=== PATIENT | male | born 1970 | race Caucasian/White ===

== ENCOUNTER 2017-01-13 19:24 | Inpatient (IN) | payer MEDICARE, OTHER ==
[~2017-01-13] VITALS: Ht 167.6 cm; Wt 94.3 kg
[~2017-01-13 19:24] MED LIST: LORAZEPAM2 MG ORAL; PRAZOSIN HCL2 MG PO
[2017-01-13] MEDS ORDERED: LORazepam Inj 2mg/ml 1ml IV PRN (22:00)
[2017-01-13] MEDS: Heparin 5000 units/ml inj SUBQ SCH (23:03)
[2017-01-13] MEDS: D5 1/2NS 1,000 ML IV SCH (23:04)
[2017-01-13] MEDS ORDERED: GABAPENTIN300 MG ORAL (23:59)
[2017-01-13] MEDS ORDERED: SIMVASTATIN20 MG ORAL (23:59)
[2017-01-13] MEDS ORDERED: TRAZODONE HCL100 MG ORAL (23:59)
[2017-01-13] MEDS ORDERED: LAMICTAL150 MG ORAL (23:59)
[2017-01-13] MEDS ORDERED: OLANZAPINE5 MG ORAL (23:59)
[2017-01-13] MEDS ORDERED: QUETIAPINE FUM400 MG ORAL (23:59)
[2017-01-14] VITALS: BP 123/107
[2017-01-14 04:34] VITALS: BP 130/98
[2017-01-14] MEDS: Heparin 5000 units/ml inj SUBQ SCH (05:45)
[2017-01-14 07:12] LABS: BASOPHILS % (AUTO) 0.5 % (0.0-2.0); EOSINOPHILS % (AUTO) 0.1 % (0.0-3.0); LYMPHOCYTES % (AUTO) 19.8 % (20.0-45.0); MEAN CORPUSCULAR HEMOGLOBIN 31.4 PG (27.0-31.0); MEAN CORPUSCULAR HGB CONC 34.4 G/DL (32.0-36.0); MEAN CORPUSCULAR VOLUME 91 FL (80-99); MEAN PLATELET VOLUME 6.6 FL (6.5-10.1); MONOCYTES % (AUTO) 9.9 % (1.0-10.0); NEUTROPHILS % (AUTO) 69.7 % (45.0-75.0); PLATELET COUNT 272 K/UL (150-450); RED BLOOD COUNT 4.34 M/UL (4.70-6.10); RED CELL DISTRIBUTION WIDTH 12.3 % (11.6-14.8); WHITE BLOOD COUNT 11.5 K/UL (4.8-10.8)
[2017-01-14 07:38] LABS: ALANINE AMINOTRANSFERASE 18 U/L (3-41); ALBUMIN/GLOBULIN RATIO 1.7 (1.0-2.7); AMYLASE 43 U/L (10-110); ANION GAP 16 (5-15); ASPARTATE AMINO TRANSFERASE 18 U/L (5-40); CALCIUM 8.6 mg/dL (8.6-10.2); CARBON DIOXIDE 26 mEQ/L (20-30); CHLORIDE 98 mEQ/L (98-107); GLOMERULAR FILTRATION RATE > 60 mL/min (>60); HEMOLYSIS 8; LIPASE 68 U/L (< 60); PHOSPHORUS 2.3 mg/dL (2.5-4.8); POTASSIUM 3.2 mEQ/L (3.4-4.9); SODIUM 140 mEQ/L (135-145); TOTAL PROTEIN 6.7 g/dL (6.6-8.7)
[2017-01-14 08:24] VITALS: BP 138/87
[2017-01-14] MEDS: D5 1/2NS 1,000 ML IV SCH (08:48)
[2017-01-14 11:58] VITALS: BP 141/89
--- NOTE | 2017-01-14 12:17 | Consultation ---
History of Present Illness Present Illness Allergies: Coded Allergies: OMEPRAZOLE (Verified Allergy, Unknown, 01/13/17) ROSUVASTATIN (Verified Allergy, Unknown, 01/13/17) Medication History Scheduled Gabapentin* (Gabapentin*), 300 MG ORAL THREE TIMES A DAY, (Reported) Lamotrigine* (Lamictal*), 150 MG ORAL DAILY, (Reported) Lorazepam* (Lorazepam*), 2 MG ORAL DAILY, (Reported) Olanzapine (Olanzapine), 5 MG ORAL DAILY, (Reported) Prazosin Hcl (Prazosin Hcl), 2 MG PO HS, (Reported) Quetiapine Fumarate* (Quetiapine Fumarate*), 800 MG ORAL DAILY, (Reported) Simvastatin (Zocor), 20 MG ORAL BEDTIME, (Reported) Trazodone Hcl* (Desyrel*), 100 MG ORAL BEDTIME, (Reported) Patient History Healthcare decision maker N Resuscitation status Full Code Advanced Directive on File Physical Exam Last 24 Hour Vital Signs Date Time Temp Pulse Resp B/P Pulse Ox O2 Delivery O2 Flow Rate FiO2 01/14/17 11:58 97.9 73 18 141/89 97 Room Air 01/14/17 08:24 97.7 70 19 138/87 95 Room Air 01/14/17 04:34 97.9 69 20 130/98 93 Room Air 01/14/17 00:00 98.2 66 20 123/107 95 Room Air Intake and Output 01/13/17 01/14/17 19:00 07:00 Intake Total 600 ml Balance 600 ml Intake IV Total 600 ml # Voids 2 Laboratory Tests Test 01/14/17 06:30 White Blood Count 11.5 K/UL (4.8-10.8) H Red Blood Count 4.34 M/UL (4.70-6.10) L Hemoglobin 13.6 G/DL (14.2-18.0) L Hematocrit 39.6 % (42.0-52.0) L Mean Corpuscular Volume 91 FL (80-99) Mean Corpuscular Hemoglobin 31.4 PG (27.0-31.0) H Mean Corpuscular Hemoglobin Concent 34.4 G/DL (32.0-36.0) Red Cell Distribution Width 12.3 % (11.6-14.8) Platelet Count 272 K/UL (150-450) Mean Platelet Volume 6.6 FL (6.5-10.1) Neutrophils (%) (Auto) 69.7 % (45.0-75.0) Lymphocytes (%) (Auto) 19.8 % (20.0-45.0) L Monocytes (%) (Auto) 9.9 % (1.0-10.0) Eosinophils (%) (Auto) 0.1 % (0.0-3.0) Basophils (%) (Auto) 0.5 % (0.0-2.0) Sodium Level 140 mEQ/L (135-145) Potassium Level 3.2 mEQ/L (3.4-4.9) L Chloride Level 98 mEQ/L (98-107) Carbon Dioxide Level 26 mEQ/L (20-30) Anion Gap 16 (5-15) H Blood Urea Nitrogen 16 mg/dL (7-23) Creatinine 1.0 mg/dL (0.7-1.2) Estimat Glomerular Filtration Rate > 60 mL/min (>60) Glucose Level 129 mg/dL (74-106) H Calcium Level 8.6 mg/dL (8.6-10.2) Phosphorus Level 2.3 mg/dL (2.5-4.8) L Magnesium Level 2.0 mg/dL (1.7-2.5) Total Bilirubin 0.4 mg/dL (0.0-1.2) Aspartate Amino Transf (AST/SGOT) 18 U/L (5-40) Alanine Aminotransferase (ALT/SGPT) 18 U/L (3-41) Alkaline Phosphatase 61 U/L (40-129) Total Protein 6.7 g/dL (6.6-8.7) Albumin 4.3 g/dL (3.5-5.2) Globulin 2.4 g/dL Albumin/Globulin Ratio 1.7 (1.0-2.7) Amylase Level 43 U/L (10-110) Lipase 68 U/L (< 60) H Height (Feet): 5 Height (Inches): 6.00 Weight (Pounds): 208 Medications Current Medications Medications (Trade) Dose Ordered Sig/Bert Route PRN Reason Start Time Stop Time Status Last Admin Dose Admin Clonidine HCl (Catapres) 0.1 mg Q4H PRN ORAL For High Blood Pressure 01/13/17 22:00 02/12/17 21:59 Dextrose/Sodium Chloride (D5 0.45% NS) 1,000 ml @ 75 mls/hr [id number] IV 01/13/17 22:00 02/12/17 21:59 01/14/17 08:48 Gabapentin (Neurontin) 300 mg THREE TIMES A DAY ORAL 01/14/17 09:00 02/13/17 08:59 01/14/17 08:41 Heparin Sodium (Porcine) (Heparin 5000 units/ml) 5,000 units EVERY 8 HOURS SUBQ 01/13/17 22:00 02/12/17 21:59 01/14/17 05:45 Lorazepam 0.5 mg 0.5 mg Q4H PRN IV Nausea & Vomiting 01/13/17 22:00 01/20/17 21:59 01/13/17 23:03 Olanzapine (ZyPREXA) 5 mg BEDTIME ORAL 01/14/17 21:00 02/13/17 20:59 Ondansetron HCl (Zofran) 4 mg Q4HR PRN IVP Nausea & Vomiting 01/13/17 22:00 02/12/17 21:59 Quetiapine Fumarate (SEROquel) 300 mg DAILY ORAL 01/14/17 14:00 02/13/17 13:59 Trazodone HCl (Desyrel) 100 mg BEDTIME ORAL 01/14/17 21:00 02/13/17 20:59 NOMI [place] Jan 14, 2017 12:17
[2017-01-14] MEDS ORDERED: D5 1/2NS 1000ml IV ONE (12:59)
[2017-01-14] MEDS ORDERED: QUEtiapine 200mg tab ORAL SCH (14:00)
[2017-01-14] MEDS ORDERED: TraZODone 100mg tab ORAL SCH (21:00)
--- NOTE | 2017-01-16 09:11 | Diagnostic Imaging Report ---
Indication:Abdominal pain Technique: Grayscale and duplex Doppler imaging of the abdomen performed. Comparison: None Findings: The liver is about 18-19 cm and demonstrates increased echogenicity consistent with fatty infiltration. Portal vein is patent by Doppler. There is no biliary ductal dilatation identified. The CBD measures between 4 and 5 mm. There is no ascites. The gallbladder, demonstrated part of the pancreas, aorta, spleen, both kidneys appear normal. There is no hydronephrosis. Impression: Hepatomegaly with fatty infiltration.
--- NOTE | 2017-02-17 18:45 | Discharge Summary ---
Discharge Summary Hospital Course Date of Admission Jan 13, 2017 at 19:24 Date of Discharge Jan 14, 2017 at 13:00 Admitting Diagnosis HPI Mango Castaneda, LIA is a 46 year old male who was admitted on Jan 13, 2017 at 19: 24 for Nausea/Vomiting Hospital Course Patient was admitted to medical floor for abdominal pain, N/V was started on clear liquid diet and abdominal ultrasound was done. US negative. Patient was discharged home. Dx:1. Nausea and vomiting 2. Abdominal pain I have been assigned to complete a DC summary on this account I was not involved in the patient management--ASTRID Lazo Discharge Discharge Disposition Patient was discharged to Home (01) Discharge Diagnoses: Krista Monae NP Feb 17, 2017 18:45
== END 2017-01-14 13:00 | disposition home or self-care (01) | DRG 392 ==
LOC: 4E 19:24
DX: R11.2 Nausea with vomiting, unspecified (principal); R10.9 Unspecified abdominal pain; Z88.8 Allergy status to other drugs, medicaments and biological substances
CPT/HCPCS: 36415; 76700; 80053; 82150; 83690; 83735; 84100; 85025

== ENCOUNTER 2017-01-15 19:14 | Inpatient (IN) | payer MEDICARE, OTHER ==
[~2017-01-15] VITALS: Ht 167.6 cm; Wt 90.7 kg
[~2017-01-15 19:14] MED LIST changes: +GABAPENTIN300 MG ORAL; +LAMICTAL150 MG ORAL; +OLANZAPINE5 MG ORAL; +QUETIAPINE FUM400 MG ORAL; +SIMVASTATIN20 MG ORAL; +TRAZODONE HCL100 MG ORAL
[2017-01-15 19:25] VITALS: BP 164/92
[2017-01-15] MEDS ORDERED: DiphenhydrAMINE 50mg/ml Inj IVP ONE (20:00)
[2017-01-15] MEDS ORDERED: LORazepam Inj 2mg/ml 1ml IV ONE (20:00)
[2017-01-15] MEDS ORDERED: Famotidine 20 MG/ 2ML VIAL IVP ONE (20:00)
[2017-01-15] MEDS ORDERED: Metoclopramide 10mg/2ml Inj IVP ONE (20:00)
[2017-01-15 20:27] LABS: BASOPHILS % (AUTO) 0.6 % (0.0-2.0); EOSINOPHILS % (AUTO) 0.4 % (0.0-3.0); LYMPHOCYTES % (AUTO) 11.9 % (20.0-45.0); MEAN CORPUSCULAR HEMOGLOBIN 32.1 PG (27.0-31.0); MEAN CORPUSCULAR HGB CONC 35.1 G/DL (32.0-36.0); MEAN CORPUSCULAR VOLUME 92 FL (80-99); MEAN PLATELET VOLUME 6.1 FL (6.5-10.1); NEUTROPHILS % (AUTO) 82.1 % (45.0-75.0); PLATELET COUNT 237 K/UL (150-450); RED BLOOD COUNT 4.14 M/UL (4.70-6.10); RED CELL DISTRIBUTION WIDTH 11.8 % (11.6-14.8); WHITE BLOOD COUNT 15.5 K/UL (4.8-10.8)
--- NOTE | 2017-01-15 20:28 | Emergency Room Report ---
History of Present Illness General Chief Complaint: Vomiting Source: Patient Present Illness HPI Patient presents with complaints of increased nausea vomiting He reports that he was feeling better when he was in the hospital here and left prior to final discharge However soon after now has become more nauseated and vomiting since 4 PM Denies any chest pressures of breath Patient reports that he has had this problem since 2007 Has not had any official diagnoses Denies any dark or black stools Denies any chest pain or shortness of breath Allergies: Coded Allergies: OMEPRAZOLE (Verified Allergy, Unknown, 01/13/17) ROSUVASTATIN (Verified Allergy, Unknown, 01/13/17) Patient History Past Medical History: see triage record Pertinent Family History: none Reviewed Nursing Documentation: PMH: Agreed, PSxH: Agreed Nursing Documentation-PMH Hx Cardiac Problems: Yes - Hyperlipidemia Hx Hypertension: Yes Hx Cancer: No Hx Gastrointestinal Problems: Yes - Chronic vomiting Hx Syncope: Yes Review of Systems All Other Systems: negative except mentioned in HPI Physical Exam Vital Signs Date Time Temp Pulse Resp B/P Pulse Ox O2 Delivery O2 Flow Rate FiO2 01/15/17 19:25 98.8 68 22 164/92 97 Room Air Sp02 EP Interpretation: reviewed, normal General Appearance: no apparent distress Head: normocephalic, atraumatic Eyes: bilateral eye EOMI, bilateral eye PERRL ENT: hearing grossly normal, normal pharynx, TMs + canals normal, uvula midline Neck: full range of motion, supple, no meningismus, no bony tend Respiratory: lungs clear, normal breath sounds, no rhonchi, no respiratory distress, no retraction, no accessory muscle use Cardiovascular #1: normal peripheral pulses, regular rate, rhythm, no edema, no gallop, no JVD, no murmur Gastrointestinal: normal bowel sounds, non tender, soft, no mass, no organomegaly, non-distended, no guarding, no hernia, no pulsatile mass, no rebound Genitourinary: no CVA tenderness Musculoskeletal: normal inspection Neurologic: oriented x3, responsive, 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, motor strength/ tone normal, sensory intact Psychiatric: mood/affect normal Skin: normal color, no rash, warm/dry, palpation normal Lymphatic: normal inspection, no adenopathy Medical Decision Making Diagnostic Impression: Primary Impression: Nausea & vomiting ER Course With the history exam and presentation, multiple differentials considered, including but not limited to appendicitis, gastritis, cholecystitis, diverticulitis Patient remained fairly persistently nauseated even with multiple interventions Patient refusing Pepcid at this time I felt that there was a component of reflux reports that he gets significant headaches with that medicine Patient labs continued to remain stable from previous however given the clinical discomfort patient was admitted for further inpatient care Labs Test 01/15/17 19:53 01/15/17 21:40 White Blood Count 15.5 K/UL (4.8-10.8) Red Blood Count 4.14 M/UL (4.70-6.10) Hemoglobin 13.3 G/DL (14.2-18.0) Hematocrit 37.9 % (42.0-52.0) Mean Corpuscular Volume 92 FL (80-99) Mean Corpuscular Hemoglobin 32.1 PG (27.0-31.0) Mean Corpuscular Hemoglobin Concent 35.1 G/DL (32.0-36.0) Red Cell Distribution Width 11.8 % (11.6-14.8) Platelet Count 237 K/UL (150-450) Mean Platelet Volume 6.1 FL (6.5-10.1) Neutrophils (%) (Auto) 82.1 % (45.0-75.0) Lymphocytes (%) (Auto) 11.9 % (20.0-45.0) Monocytes (%) (Auto) 5.0 % (1.0-10.0) Eosinophils (%) (Auto) 0.4 % (0.0-3.0) Basophils (%) (Auto) 0.6 % (0.0-2.0) Sodium Level 138 mEQ/L (135-145) Potassium Level 3.4 mEQ/L (3.4-4.9) Chloride Level 95 mEQ/L (98-107) Carbon Dioxide Level 23 mEQ/L (20-30) Anion Gap 20 (5-15) Blood Urea Nitrogen 9 mg/dL (7-23) Creatinine 1.0 mg/dL (0.7-1.2) Estimat Glomerular Filtration Rate > 60 mL/min (>60) Glucose Level 122 mg/dL (74-106) Calcium Level 8.8 mg/dL (8.6-10.2) Total Bilirubin 0.4 mg/dL (0.0-1.2) Aspartate Amino Transf (AST/SGOT) 27 U/L (5-40) Alanine Aminotransferase (ALT/SGPT) 23 U/L (3-41) Alkaline Phosphatase 66 U/L (40-129) Total Protein 7.0 g/dL (6.6-8.7) Albumin 4.6 g/dL (3.5-5.2) Globulin 2.4 g/dL Albumin/Globulin Ratio 1.9 (1.0-2.7) Lipase 22 U/L (< 60) Serum Alcohol < 10 mg/dL Urine Opiates Screen Negative (NEGATIVE) Urine Barbiturates Screen Negative (NEGATIVE) Phencyclidine (PCP) Screen Negative (NEGATIVE) Urine Amphetamines Screen Negative (NEGATIVE) Urine Benzodiazepines Screen Negative (NEGATIVE) Urine Cocaine Screen Negative (NEGATIVE) Urine Marijuana (THC) Screen Negative (NEGATIVE) Chest X-Ray Diagnostic Results Chest X-Ray Ordered: No Last Vital Signs Date Time Temp Pulse Resp B/P Pulse Ox O2 Delivery O2 Flow Rate FiO2 01/15/17 19:26 98.8 73 14 164/92 96 Room Air Status: improved Disposition: ADMITTED INPATIENT Condition: Serious JOSEY AG D.O. Jan 15, 2017 20:27
[2017-01-15 20:30] VITALS: BP 164/103
[2017-01-15 20:46] LABS: ALANINE AMINOTRANSFERASE 23 U/L (3-41); ALBUMIN/GLOBULIN RATIO 1.9 (1.0-2.7); ALCOHOL < 10 mg/dL; ANION GAP 20 (5-15); ASPARTATE AMINO TRANSFERASE 27 U/L (5-40); CALCIUM 8.8 mg/dL (8.6-10.2); CARBON DIOXIDE 23 mEQ/L (20-30); CHLORIDE 95 mEQ/L (98-107); GLOMERULAR FILTRATION RATE > 60 mL/min (>60); HEMOLYSIS 9; LIPASE 22 U/L (< 60); POTASSIUM 3.4 mEQ/L (3.4-4.9); SODIUM 138 mEQ/L (135-145)
[2017-01-15 21:30] VITALS: BP 145/115
[2017-01-15] MEDS ORDERED: Mylanta II UD 30ml ORAL PRN (22:15)
[2017-01-15] MEDS ORDERED: Morphine Sulfate 2mg/ml Inj IVP PRN (22:15)
[2017-01-15] MEDS ORDERED: Miralax 17gm pkt ORAL PRN (22:15)
[2017-01-15] MEDS ORDERED: Nitroglycerin Subl 0.4mg tab (Bottle Of 25) SL PRN (22:15)
[2017-01-15] MEDS ORDERED: LORazepam Inj 2mg/ml 1ml IV PRN (22:15)
[2017-01-15 22:30] VITALS: BP 167/98
[2017-01-16] VITALS: BP 157/79
[2017-01-16] MEDS: D5 1/2NS 1,000 ML IV SCH ×3 (00:52→18:45)
[2017-01-16 07:18] LABS: BASOPHILS % (AUTO) 0.5 % (0.0-2.0); LYMPHOCYTES % (AUTO) 12.8 % (20.0-45.0); MEAN CORPUSCULAR HGB CONC 35.1 G/DL (32.0-36.0); MEAN CORPUSCULAR VOLUME 91 FL (80-99); MEAN PLATELET VOLUME 6.3 FL (6.5-10.1); NEUTROPHILS % (AUTO) 82.6 % (45.0-75.0); PLATELET COUNT 203 K/UL (150-450); RED BLOOD COUNT 3.64 M/UL (4.70-6.10); RED CELL DISTRIBUTION WIDTH 11.7 % (11.6-14.8); WHITE BLOOD COUNT 11.3 K/UL (4.8-10.8)
[2017-01-16 08:06] LABS: ALANINE AMINOTRANSFERASE 20 U/L (3-41); ALBUMIN/GLOBULIN RATIO 1.9 (1.0-2.7); AMYLASE 34 U/L (10-110); ANION GAP 16 (5-15); ASPARTATE AMINO TRANSFERASE 23 U/L (5-40); CALCIUM 8.3 mg/dL (8.6-10.2); CARBON DIOXIDE 23 mEQ/L (20-30); CHLORIDE 102 mEQ/L (98-107); CREATININE 0.9 mg/dL (0.7-1.2); GLOMERULAR FILTRATION RATE > 60 mL/min (>60); HEMOLYSIS 5; LIPASE 15 U/L (< 60); POTASSIUM 3.4 mEQ/L (3.4-4.9); SODIUM 141 mEQ/L (135-145); TOTAL PROTEIN 6.4 g/dL (6.6-8.7)
[2017-01-16 08:11] VITALS: BP 128/79
[2017-01-16] MEDS: Heparin 5000 units/ml inj SUBQ SCH ×2 (08:48→20:50)
[2017-01-16 11:56] VITALS: BP 135/94
--- NOTE | 2017-01-16 14:12 | GI Initial Consult Note ---
History of Present Illness General Date patient seen: Jan 16, 2017 Time patient seen: 11:00 Reason for Hospitalization: Vomiting Referring physician: KAROLINA DAWN Reason for Consultation: PERSISTANT NAUSEA Present Illness HPI Patient presents with complaints of increased nausea vomiting He reports that he was feeling better when he was in the hospital here and left prior to final discharge However soon after now has become more nauseated and vomiting since 4 PM Denies any chest pressures of breath Patient reports that he has had this problem since 2007 Has not had any official diagnoses Denies any dark or black stools Denies any chest pain or shortness of breath GI CONSULT. HPI as noted above. GI consulted for persistent vomiting. Pt seen on floor, awake A&Ox4 NAD with no active s/sx of N/V/D. Stated his last episode of emesis was at 4pm. 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 Denies any hematemesis or coffee grounds. He states his vomiting has unknown etiology and randomly occurs. Labs show mild leukocytosis and anemia. Lipase and utox both unremarkable. Pt has allergy to PPIs'. He states he has hx of colonic polyps since age 34 and receives colonoscopies every 3-5 years. He is due for his next routine colonoscopy next year. Home Meds Reported Medications Gabapentin* (GABAPENTIN*) 300 Mg Capsule, 300 MG ORAL THREE TIMES A DAY, CAP 0 Refills 01/13/17 Simvastatin (ZOCOR) 20 Mg Tablet, 20 MG ORAL BEDTIME, TAB 01/13/17 Lamotrigine* (LAMICTAL*) 150 Mg Tablet, 150 MG ORAL DAILY, #30 TAB 0 Refills 01/13/17 Quetiapine Fumarate* (QUETIAPINE FUMARATE*) 400 Mg Tablet, 800 MG ORAL DAILY, TAB 01/13/17 Olanzapine (OLANZAPINE) 5 Mg Tablet, 5 MG ORAL DAILY, TAB 01/13/17 Trazodone Hcl* (DESYREL*) 100 Mg Tablet, 100 MG ORAL BEDTIME, TAB 01/13/17 Prazosin Hcl (PRAZOSIN HCL) 2 Mg Capsule, 2 MG PO HS, CAP 09/20/14 Lorazepam* (LORAZEPAM*) 2 Mg Tablet, 2 MG ORAL DAILY, TAB 09/20/14 Med list reviewed/reconciled: Yes Allergies: Coded Allergies: OMEPRAZOLE (Verified Allergy, Unknown, 01/13/17) ROSUVASTATIN (Verified Allergy, Unknown, 01/13/17) Patient History History Provided By: Patient, Medical Record PMH Narrative Magoffin War Syndrome Hx Cardiac Problems: Yes - Hyperlipidemia Hx Hypertension: Yes Hx Cancer: No Hx Gastrointestinal Problems: Yes - Chronic vomiting Hx Syncope: Yes Social History Narrative Social ETOH 1 day pack smoker Review of Systems All Other Systems: negative except mentioned in HPI Physical Exam Vital Signs Date Time Temp Pulse Resp B/P Pulse Ox O2 Delivery O2 Flow Rate FiO2 01/15/17 19:25 98.8 68 22 164/92 97 Room Air Sp02 EP Interpretation: reviewed Labs Laboratory Tests Test 01/15/17 19:53 01/15/17 21:40 01/16/17 05:10 White Blood Count 15.5 K/UL (4.8-10.8) H 11.3 K/UL (4.8-10.8) H Red Blood Count 4.14 M/UL (4.70-6.10) L 3.64 M/UL (4.70-6.10) L Hemoglobin 13.3 G/DL (14.2-18.0) L 11.7 G/DL (14.2-18.0) L Hematocrit 37.9 % (42.0-52.0) L 33.2 % (42.0-52.0) L Mean Corpuscular Volume 92 FL (80-99) 91 FL (80-99) Mean Corpuscular Hemoglobin 32.1 PG (27.0-31.0) H 32.0 PG (27.0-31.0) H Mean Corpuscular Hemoglobin Concent 35.1 G/DL (32.0-36.0) 35.1 G/DL (32.0-36.0) Red Cell Distribution Width 11.8 % (11.6-14.8) 11.7 % (11.6-14.8) Platelet Count 237 K/UL (150-450) 203 K/UL (150-450) Mean Platelet Volume 6.1 FL (6.5-10.1) L 6.3 FL (6.5-10.1) L Neutrophils (%) (Auto) 82.1 % (45.0-75.0) H 82.6 % (45.0-75.0) H Lymphocytes (%) (Auto) 11.9 % (20.0-45.0) L 12.8 % (20.0-45.0) L Monocytes (%) (Auto) 5.0 % (1.0-10.0) 4.0 % (1.0-10.0) Eosinophils (%) (Auto) 0.4 % (0.0-3.0) 0.0 % (0.0-3.0) Basophils (%) (Auto) 0.6 % (0.0-2.0) 0.5 % (0.0-2.0) Sodium Level 138 mEQ/L (135-145) 141 mEQ/L (135-145) Potassium Level 3.4 mEQ/L (3.4-4.9) 3.4 mEQ/L (3.4-4.9) Chloride Level 95 mEQ/L (98-107) L 102 mEQ/L (98-107) Carbon Dioxide Level 23 mEQ/L (20-30) 23 mEQ/L (20-30) Anion Gap 20 (5-15) H 16 (5-15) H Blood Urea Nitrogen 9 mg/dL (7-23) 9 mg/dL (7-23) Creatinine 1.0 mg/dL (0.7-1.2) 0.9 mg/dL (0.7-1.2) Estimat Glomerular Filtration Rate > 60 mL/min (>60) > 60 mL/min (>60) Glucose Level 122 mg/dL (74-106) H 132 mg/dL (74-106) H Calcium Level 8.8 mg/dL (8.6-10.2) 8.3 mg/dL (8.6-10.2) L Total Bilirubin 0.4 mg/dL (0.0-1.2) 0.4 mg/dL (0.0-1.2) Aspartate Amino Transf (AST/SGOT) 27 U/L (5-40) 23 U/L (5-40) Alanine Aminotransferase (ALT/SGPT) 23 U/L (3-41) 20 U/L (3-41) Alkaline Phosphatase 66 U/L (40-129) 59 U/L (40-129) Total Protein 7.0 g/dL (6.6-8.7) 6.4 g/dL (6.6-8.7) L Albumin 4.6 g/dL (3.5-5.2) 4.2 g/dL (3.5-5.2) Globulin 2.4 g/dL 2.2 g/dL Albumin/Globulin Ratio 1.9 (1.0-2.7) 1.9 (1.0-2.7) Lipase 22 U/L (< 60) 15 U/L (< 60) Serum Alcohol < 10 mg/dL Urine Opiates Screen Negative (NEGATIVE) Urine Barbiturates Screen Negative (NEGATIVE) Phencyclidine (PCP) Screen Negative (NEGATIVE) Urine Amphetamines Screen Negative (NEGATIVE) Urine Benzodiazepines Screen Negative (NEGATIVE) Urine Cocaine Screen Negative (NEGATIVE) Urine Marijuana (THC) Screen Negative (NEGATIVE) Activated Partial Thromboplast Time 28 SEC (23-33) Amylase Level 34 U/L (10-110) General Appearance: well appearing, no apparent distress, alert Head: normocephalic EENT: normal ENT inspection Neck: full range of motion, supple Respiratory: normal breath sounds, no respiratory distress Cardiovascular: normal rate Gastrointestinal: non tender, soft Rectal: deferred Musculoskeletal: back normal Neurologic: alert, oriented x3, responsive Psychiatric: normal inspection, judgement/insight normal Skin: normal inspection, normal color, no rash, warm/dry Lymphatic: normal inspection, no adenopathy Current Medications Current Medications Medications (Trade) Dose Ordered Sig/Bert Route PRN Reason Start Time Stop Time Status Last Admin Dose Admin Acetaminophen (Tylenol) 650 mg Q4H PRN ORAL fever 01/15/17 22:15 02/14/17 22:14 Al Hydroxide/Mg Hydroxide (Mylanta II) 30 ml Q6H PRN ORAL dyspepsia 01/15/17 22:15 02/14/17 22:14 Dextrose (Dextrose 50%) STAT PRN IV Hypoglycemia 01/15/17 22:15 02/14/17 22:14 Dextrose/Sodium Chloride (D5 0.45% NS) 1,000 ml @ 75 mls/hr [id number] IV 01/15/17 17:40 02/14/17 17:39 01/16/17 00:52 Diphenhydramine HCl (Benadryl) 25 mg Q6H PRN ORAL Itching/Pruritis 01/15/17 22:15 02/14/17 22:14 Gabapentin (Neurontin) 300 mg THREE TIMES A DAY ORAL 01/16/17 09:00 02/15/17 08:59 01/16/17 12:50 Heparin Sodium (Porcine) (Heparin 5000 units/ml) 5,000 units EVERY 12 HOURS SUBQ 01/16/17 09:00 02/15/17 08:59 01/16/17 08:48 Lamotrigine (LaMICtal) 150 mg BEDTIME ORAL 01/16/17 21:00 02/15/17 20:59 Lorazepam (Ativan 2mg/ml 1ml) 1 mg Q4H PRN IV agitation 01/15/17 22:15 01/22/17 22:14 Morphine Sulfate (Morphine Sulfate) 2 mg Q4H PRN IVP severe Pain (Pain Scale 7-10) 01/15/17 22:15 01/22/17 22:14 Nitroglycerin (Ntg) 0.4 mg Q5M X 3 DOSES PRN SL Prn Chest Pain 01/15/17 22:15 02/14/17 22:14 Olanzapine (ZyPREXA) 5 mg BEDTIME ORAL 01/16/17 21:00 02/15/17 20:59 Ondansetron HCl (Zofran) 4 mg Q6H PRN IVP Nausea & Vomiting 01/15/17 22:15 02/14/17 22:14 Polyethylene Glycol (Miralax) 17 gm HSPRN PRN ORAL Constipation 01/15/17 22:15 02/14/17 22:14 Promethazine HCl (Phenergan) 25 mg Q8H PRN IV refractory nausea 01/15/17 22:15 02/14/17 22:14 Quetiapine Fumarate (SEROquel) 800 mg BEDTIME ORAL 01/16/17 21:00 02/15/17 20:59 Ranitidine HCl (Zantac) 150 mg BEDTIME ORAL 01/16/17 21:00 02/15/17 20:59 Temazepam (Restoril) 15 mg HSPRN PRN ORAL Insomnia 01/15/17 22:15 01/22/17 22:14 01/16/17 00:50 Trazodone HCl 100 mg 100 mg BEDTIME ORAL 6/12/17 21:00 02/15/17 20:59 GI: Plan Problems: (1) Magoffin War syndrome (2) Nausea & vomiting (3) Vomiting (4) Acute alcoholic intoxication (5) Abdominal pain Plan lipase WNL utox negative symptomatically treat patient at this time pt has allergy to ppi's >> zantac qhs zofran prn, consider reglan if patient has persistent vomiting IV hydration + electrolyte replacement CLD, adv as tolerated anemia work up OB stool r/o GI bleed f/u with own GI specialist Discussed with Dr. Muniz. Thank you for referring this patient, we will follow. Adelina German N.P. Jan 16, 2017 14:12
--- NOTE | 2017-01-16 15:32 | Diagnostic Imaging Report ---
Indication: Vomiting and abdominal pain Technique: Ortiz-scale and duplex images of the upper abdomen were obtained Comparison: 01/14/2017 Findings: Gallbladder is unremarkable, without stones, wall thickening, nor pericholecystic fluid. Sonographic Walsh's sign is negative. Common bile duct measures 3 mm in diameter. No intrahepatic biliary ductal dilatation. Liver demonstrates equivocally slightly increased echogenicity, no focal abnormality. Is slightly enlarged Portal vein and hepatic veins are patent. Pancreas is unremarkable. Spleen is unremarkable. Left kidney measures 10.3 cm in length. Right kidney measures 10.5 cm length. Both kidneys demonstrate normal echogenicity. There is no hydronephrosis. No focal abnormality . Abdominal aorta is partially obscured by bowel gas, visualized portions are non-aneurysmal . No significant interim change, over 2 days Impression: Equivocally mildly increased hepatic echogenicity. If real, could indicate hepatocellular disease such as fatty change. Borderline hepatomegaly Negative for gallstones or dilated ducts No significant change since exam of 2 days previous
[2017-01-16] MEDS ORDERED: D5 1/2NS 1000ml IV ONE (15:42)
[2017-01-16 15:52] VITALS: BP 139/89
--- NOTE | 2017-01-16 19:10 | Consultation ---
History of Present Illness General Date patient seen: Jan 16, 2017 Chief Complaint: Vomiting Referring physician: KAROLINA DAWN Reason for Consultation: inpatient management Present Illness HPI 46 year old male with hx of PTSD, Depression, "[place] war syndrome"presented with complaints of increased nausea vomiting, started immediatly after he was discharged from hospital. He was found to have leukocytosis and admitted for persistent N/V. Allergies: Coded Allergies: OMEPRAZOLE (Verified Allergy, Unknown, 01/13/17) ROSUVASTATIN (Verified Allergy, Unknown, 01/13/17) Medication History Scheduled Gabapentin* (Gabapentin*), 300 MG ORAL THREE TIMES A DAY, (Reported) Lamotrigine* (Lamictal*), 150 MG ORAL DAILY, (Reported) Lorazepam* (Lorazepam*), 2 MG ORAL DAILY, (Reported) Olanzapine (Olanzapine), 5 MG ORAL DAILY, (Reported) Prazosin Hcl (Prazosin Hcl), 2 MG PO HS, (Reported) Quetiapine Fumarate* (Quetiapine Fumarate*), 800 MG ORAL DAILY, (Reported) Simvastatin (Zocor), 20 MG ORAL BEDTIME, (Reported) Trazodone Hcl* (Desyrel*), 100 MG ORAL BEDTIME, (Reported) Patient History Healthcare decision maker self Resuscitation status Full Code Advanced Directive on File No Past Medical/Surgical History Past Medical/Surgical History: (1) [place] War syndrome Review of Systems All Other Systems: negative except mentioned in HPI Physical Exam General Appearance: WD/WN Lines, tubes and drains: peripheral HEENT: normocephalic Neck: non-tender, normal alignment Respiratory/Chest: chest wall non-tender Cardiovascular/Chest: normal peripheral pulses Abdomen: normal bowel sounds, non tender Genitourinary/Rectal: normal genital exam, normal rectal exam Extremities: normal range of motion Skin Exam: normal pigmentation 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 Last 24 Hour Vital Signs Date Time Temp Pulse Resp B/P Pulse Ox O2 Delivery O2 Flow Rate FiO2 01/16/17 15:52 98.1 64 21 139/89 96 Room Air 01/16/17 11:56 97.7 64 20 135/94 94 Room Air 01/16/17 08:11 98.1 83 20 128/79 94 Room Air 01/16/17 00:00 98.2 63 20 157/79 95 Room Air 01/15/17 22:55 98.3 75 19 167/98 96 Room Air 01/15/17 22:30 98.3 75 19 167/98 96 Room Air 01/15/17 21:30 69 21 145/115 95 Room Air 01/15/17 20:30 68 22 164/103 96 Room Air 01/15/17 19:26 98.8 73 14 164/92 96 Room Air 01/15/17 19:25 98.8 68 22 164/92 97 Room Air Intake and Output 01/15/17 01/16/17 19:00 07:00 Intake Total 450 ml Output Total 325 ml Balance 125 ml Intake Oral 0 ml IV Total 450 ml Output Urine Total 125 ml Emesis 200 ml # Voids 2 Laboratory Tests Test 01/15/17 19:53 01/15/17 21:40 01/16/17 05:10 01/16/17 16:15 White Blood Count 15.5 K/UL (4.8-10.8) H 11.3 K/UL (4.8-10.8) H Red Blood Count 4.14 M/UL (4.70-6.10) L 3.64 M/UL (4.70-6.10) L Hemoglobin 13.3 G/DL (14.2-18.0) L 11.7 G/DL (14.2-18.0) L Hematocrit 37.9 % (42.0-52.0) L 33.2 % (42.0-52.0) L Mean Corpuscular Volume 92 FL (80-99) 91 FL (80-99) Mean Corpuscular Hemoglobin 32.1 PG (27.0-31.0) H 32.0 PG (27.0-31.0) H Mean Corpuscular Hemoglobin Concent 35.1 G/DL (32.0-36.0) 35.1 G/DL (32.0-36.0) Red Cell Distribution Width 11.8 % (11.6-14.8) 11.7 % (11.6-14.8) Platelet Count 237 K/UL (150-450) 203 K/UL (150-450) Mean Platelet Volume 6.1 FL (6.5-10.1) L 6.3 FL (6.5-10.1) L Neutrophils (%) (Auto) 82.1 % (45.0-75.0) H 82.6 % (45.0-75.0) H Lymphocytes (%) (Auto) 11.9 % (20.0-45.0) L 12.8 % (20.0-45.0) L Monocytes (%) (Auto) 5.0 % (1.0-10.0) 4.0 % (1.0-10.0) Eosinophils (%) (Auto) 0.4 % (0.0-3.0) 0.0 % (0.0-3.0) Basophils (%) (Auto) 0.6 % (0.0-2.0) 0.5 % (0.0-2.0) Sodium Level 138 mEQ/L (135-145) 141 mEQ/L (135-145) Potassium Level 3.4 mEQ/L (3.4-4.9) 3.4 mEQ/L (3.4-4.9) Chloride Level 95 mEQ/L (98-107) L 102 mEQ/L (98-107) Carbon Dioxide Level 23 mEQ/L (20-30) 23 mEQ/L (20-30) Anion Gap 20 (5-15) H 16 (5-15) H Blood Urea Nitrogen 9 mg/dL (7-23) 9 mg/dL (7-23) Creatinine 1.0 mg/dL (0.7-1.2) 0.9 mg/dL (0.7-1.2) Estimat Glomerular Filtration Rate > 60 mL/min (>60) > 60 mL/min (>60) Glucose Level 122 mg/dL (74-106) H 132 mg/dL (74-106) H Calcium Level 8.8 mg/dL (8.6-10.2) 8.3 mg/dL (8.6-10.2) L Total Bilirubin 0.4 mg/dL (0.0-1.2) 0.4 mg/dL (0.0-1.2) Aspartate Amino Transf (AST/SGOT) 27 U/L (5-40) 23 U/L (5-40) Alanine Aminotransferase (ALT/SGPT) 23 U/L (3-41) 20 U/L (3-41) Alkaline Phosphatase 66 U/L (40-129) 59 U/L (40-129) Total Protein 7.0 g/dL (6.6-8.7) 6.4 g/dL (6.6-8.7) L Albumin 4.6 g/dL (3.5-5.2) 4.2 g/dL (3.5-5.2) Globulin 2.4 g/dL 2.2 g/dL Albumin/Globulin Ratio 1.9 (1.0-2.7) 1.9 (1.0-2.7) Lipase 22 U/L (< 60) 15 U/L (< 60) Serum Alcohol < 10 mg/dL Urine Opiates Screen Negative (NEGATIVE) Urine Barbiturates Screen Negative (NEGATIVE) Phencyclidine (PCP) Screen Negative (NEGATIVE) Urine Amphetamines Screen Negative (NEGATIVE) Urine Benzodiazepines Screen Negative (NEGATIVE) Urine Cocaine Screen Negative (NEGATIVE) Urine Marijuana (THC) Screen Negative (NEGATIVE) Activated Partial Thromboplast Time 28 SEC (23-33) Amylase Level 34 U/L (10-110) Stool Occult Blood Pending Height (Feet): 5 Height (Inches): 6.00 Weight (Pounds): 200 Medications Current Medications Medications (Trade) Dose Ordered Sig/Bert Route PRN Reason Start Time Stop Time Status Last Admin Dose Admin Acetaminophen (Tylenol) 650 mg Q4H PRN ORAL fever 01/15/17 22:15 02/14/17 22:14 Al Hydroxide/Mg Hydroxide (Mylanta II) 30 ml Q6H PRN ORAL dyspepsia 01/15/17 22:15 02/14/17 22:14 Dextrose (Dextrose 50%) STAT PRN IV Hypoglycemia 01/15/17 22:15 02/14/17 22:14 Dextrose/Sodium Chloride (D5 0.45% NS) 1,000 ml @ 75 mls/hr [id number] IV 01/15/17 17:40 02/14/17 17:39 01/16/17 00:52 Diphenhydramine HCl (Benadryl) 25 mg Q6H PRN ORAL Itching/Pruritis 01/15/17 22:15 02/14/17 22:14 Gabapentin (Neurontin) 300 mg THREE TIMES A DAY ORAL 01/16/17 09:00 02/15/17 08:59 01/16/17 17:17 Heparin Sodium (Porcine) (Heparin 5000 units/ml) 5,000 units EVERY 12 HOURS SUBQ 01/16/17 09:00 02/15/17 08:59 01/16/17 08:48 Lamotrigine (LaMICtal) 150 mg BEDTIME ORAL 01/16/17 21:00 02/15/17 20:59 Lorazepam (Ativan 2mg/ml 1ml) 1 mg Q4H PRN IV agitation 01/15/17 22:15 01/22/17 22:14 Morphine Sulfate (Morphine Sulfate) 2 mg Q4H PRN IVP severe Pain (Pain Scale 7-10) 01/15/17 22:15 01/22/17 22:14 Nitroglycerin (Ntg) 0.4 mg Q5M X 3 DOSES PRN SL Prn Chest Pain 01/15/17 22:15 02/14/17 22:14 Olanzapine (ZyPREXA) 5 mg BEDTIME ORAL 01/16/17 21:00 02/15/17 20:59 Ondansetron HCl (Zofran) 4 mg Q6H PRN IVP Nausea & Vomiting 01/15/17 22:15 02/14/17 22:14 Polyethylene Glycol (Miralax) 17 gm HSPRN PRN ORAL Constipation 01/15/17 22:15 02/14/17 22:14 Promethazine HCl (Phenergan) 25 mg Q8H PRN IV refractory nausea 01/15/17 22:15 02/14/17 22:14 Quetiapine Fumarate (SEROquel) 800 mg BEDTIME ORAL 01/16/17 21:00 02/15/17 20:59 Ranitidine HCl (Zantac) 150 mg BEDTIME ORAL 01/16/17 21:00 02/15/17 20:59 Temazepam (Restoril) 15 mg HSPRN PRN ORAL Insomnia 01/15/17 22:15 01/22/17 22:14 01/16/17 00:50 Trazodone HCl 100 mg 100 mg BEDTIME ORAL 01/16/17 21:00 02/15/17 20:59 Assessment/Plan Problem List: (1) Nausea & vomiting ICD Codes: R11.2 - Nausea with vomiting, unspecified SNOMED: 20771015 (2) Leukocytosis ICD Codes: D72.829 - Elevated white blood cell count, unspecified SNOMED: 145870387, 766899974 (3) [place] War syndrome ICD Codes: R69 - Illness, unspecified; Y36.90XS - War operations, unspecified, sequela SNOMED: 96057659 Assessment/Plan GI evaluation NPO IV fluids psych evaluation dvt prophylaxis symptomatic treatment NOMI [place] Jan 16, 2017 19:10
--- NOTE | 2017-01-16 19:15 | History & Physical ---
History and Physical History & Physicial Dictated for Int Med-Dr Hull no. [id number]. MIRZA CAPPS Jan 16, 2017 19:15
[2017-01-16 20:00] VITALS: BP 146/98
[2017-01-16] MEDS: LaMICtal 150mg tab ORAL SCH (20:47)
[2017-01-16] MEDS: TraZODone 100mg tab ORAL SCH (20:47)
[2017-01-16] MEDS: QUEtiapine 200mg tab ORAL SCH (20:47)
--- NOTE | 2017-01-17 00:45 | History and Physical Report ---
DATE OF ADMISSION: 01/15/2017 CHIEF COMPLAINT: The patient is a 46-year-old white male with history of [place] War syndrome also known as cyclic vomiting syndrome presents with complaint of nausea and vomiting. HISTORY OF PRESENT ILLNESS: Began on Friday January 13, 2017. The patient began to experience intractable nausea and vomiting. The patient was unable to tolerate solids or liquids. The patient was admitted to [facility], however, left on Saturday January 14, 2017 against medical advice because he was feeling better. The patient began to experience nausea and vomiting again early MondayJanuary 15, 2017. The patient presented to [facility]. The patient was admitted for intractable nausea and vomiting. REVIEW OF SYSTEMS: Constitutional: The patient denies weight loss or weight gain. The patient denies fevers or chills. HEENT: The patient denies ear or throat pain. Cardiovascular: The patient denies palpitations or chest pain. Chest: The patient denies wheeze or shortness of breath. Abdomen: The patient complains of intractable nausea and vomiting as above. The patient denies diarrhea or constipation. Genitourinary: The patient denies dysuria or increased frequency of urination. Neuromuscular: The patient denies seizures or generalized weakness. PAST MEDICAL HISTORY: Significant for: 1. [place] War syndrome also known as cyclic vomiting syndrome as above. 2. Hypercholesterolemia. 3. Posttraumatic stress disorder. 4. Peripheral neuropathy of the legs. PAST SURGICAL HISTORY: The patient denies. CURRENT MEDICATIONS: 1. Gabapentin 300 mg one tablet p.o. 3 times daily. 2. Zocor 20 mg one tablet p.o. at bedtime. 3. Lamictal 150 mg one tablet p.o. daily. 4. Seroquel 400 mg 2 tablets p.o. daily. 5. Zyprexa 5 mg one tablet p.o. daily. 6. Trazodone 100 mg one tablet p.o. at bedtime. ALLERGIES: Pepcid. SOCIAL HISTORY: The patient is . The patient is retired . The patient admits to tobacco use one pack per day. The patient admits to alcohol use socially. The patient denies other drug abuse. PHYSICAL EXAMINATION: VITAL SIGNS: Temperature 98.3, respirations 19, pulse 75, blood pressure 167/90. GENERAL: The patient is a well-developed and well-nourished white male, in no apparent distress. HEENT: Eyes, pupils are equal and responsive to light and accommodation. Extraocular movements are intact. NECK: Supple without lymphadenopathy. CHEST: Lungs are clear to auscultation bilaterally without wheezes or rales. CARDIOVASCULAR: Regular rhythm and rate. S1 and S2 normal without murmurs, rubs, or gallops. ABDOMEN: Soft, nontender, and nondistended with positive bowel sounds. No evidence of hepatosplenomegaly. Currently, no rebound or guarding noted. EXTREMITIES: Negative for clubbing, cyanosis, or edema. RECTAL/GENITAL: Refused. NEUROLOGIC: Cranial nerves II through XII are grossly intact without focal deficits. Motor strength is 5/5 bilaterally. Deep tendon reflexes are 2+ plantar. LABORATORY STUDIES: WBC 15.5, hemoglobin 13.2, hematocrit 37.9, and platelets 137,000. Sodium 138, potassium 2.4, chloride 95, CO2 23, BUN 9, creatinine 1.0, glucose 122. ASSESSMENT: This is a 46-year-old white male: 1. Intractable nausea and vomiting. 2. Cyclic vomiting syndrome. 3. [place] War syndrome. 4. Hypercholesterolemia. 5. Posttraumatic stress disorder. 6. Peripheral neuropathy. TREATMENT: 1. Nausea/vomiting/cyclical vomiting syndrome. A Gastroenterology consultation was obtained with Dr. Luis Daniel Muniz. The patient is currently receiving intravenous fluids. We will follow recommendations against serology. The patient is currently somewhat improved on Zofran intravenously. 2. Hypercholesterolemia, continue Zocor as above. 3. Posttraumatic stress disorder. Continue Lamictal, Seroquel, Zyprexa and trazodone as above. 4. Peripheral neuropathy, continue the gabapentin as above. Tim Lemos M.D. DR: BENITO JOB#: [id number] CC:
[2017-01-17 04:00] VITALS: BP 132/81
[2017-01-17 07:25] LABS: BASOPHILS % (AUTO) 0.4 % (0.0-2.0); LYMPHOCYTES % (AUTO) 38.2 % (20.0-45.0); MEAN CORPUSCULAR HEMOGLOBIN 31.6 PG (27.0-31.0); MEAN CORPUSCULAR HGB CONC 34.9 G/DL (32.0-36.0); MEAN CORPUSCULAR VOLUME 90 FL (80-99); MEAN PLATELET VOLUME 6.8 FL (6.5-10.1); MONOCYTES % (AUTO) 8.4 % (1.0-10.0); PLATELET COUNT 231 K/UL (150-450); RED BLOOD COUNT 4.03 M/UL (4.70-6.10); RED CELL DISTRIBUTION WIDTH 11.5 % (11.6-14.8); WHITE BLOOD COUNT 8.5 K/UL (4.8-10.8)
[2017-01-17 07:48] LABS: HEMOGLOBIN A1C 5.8 % (< 6.0)
[2017-01-17 07:49] LABS: PROTHROMBIN TIME 10.1 SEC (9.30-11.50)
[2017-01-17 08:00] VITALS: BP 138/90
[2017-01-17 08:02] LABS: ANION GAP 16 (5-15); CALCIUM 8.6 mg/dL (8.6-10.2); CARBON DIOXIDE 23 mEQ/L (20-30); CHLORIDE 101 mEQ/L (98-107); CREATININE 0.9 mg/dL (0.7-1.2); GLOMERULAR FILTRATION RATE > 60 mL/min (>60); SODIUM 140 mEQ/L (135-145)
[2017-01-17 08:03] LABS: FERRITIN 321 ng/mL (10-230)
[2017-01-17 08:27] LABS: HEMOLYSIS 6; IRON 68 ug/dL (59-158); TOTAL IRON BINDING CAPACITY 279 ug/dL (250-400)
[2017-01-17] MEDS: D5 1/2NS 1,000 ML IV SCH ×2 (09:40→21:28)
[2017-01-17] MEDS: Heparin 5000 units/ml inj SUBQ SCH ×2 (09:42→20:30)
[2017-01-17 10:27] LABS: RETICULOCYTE COUNT 2.2 % (0.0-2.0)
[2017-01-17 12:00] VITALS: BP 137/98
--- NOTE | 2017-01-17 13:28 | Consultation ---
Consult Note Consult Note [id number] ZULEYKA ESPARZA M.D. Jan 17, 2017 13:28
--- NOTE | 2017-01-17 14:05 | GI Progress Note ---
Assessment/Plan Problems: (1) [place] War syndrome ICD Codes: R69 - Illness, unspecified; Y36.90XS - War operations, unspecified, sequela SNOMED: 52712924 (2) Nausea & vomiting ICD Codes: R11.2 - Nausea with vomiting, unspecified SNOMED: 32907366 (3) Abdominal pain ICD Codes: R10.9 - Unspecified abdominal pain SNOMED: 77205152 (4) Vomiting ICD Codes: R11.10 - Vomiting, unspecified SNOMED: 735816210 (5) Leukocytosis ICD Codes: D72.829 - Elevated white blood cell count, unspecified SNOMED: 152421057, 589126550 Status: stable Status Narrative Discussed with Dr. Muniz. Assessment/Plan lipase WNL utox negative OB stool negative US unremarkable HgA1C WNL ok for dc per GI standpoint if patient tolerates dinner adv to cardiac diet symptomatically treat zantac qhs zofran prn, consider reglan if patient has persistent vomiting IV hydration + electrolyte replacement f/u with own GI specialist Subjective Subjective no symptoms tolerates clear liquid diet Objective Last 24 Hour Vital Signs Date Time Temp Pulse Resp B/P Pulse Ox O2 Delivery O2 Flow Rate FiO2 01/17/17 12:00 97.7 73 18 137/98 95 Room Air 01/17/17 08:00 97.5 75 19 138/90 95 Nasal Cannula 3.0 01/17/17 04:00 97.9 73 18 132/81 99 Room Air 01/16/17 20:00 98.4 73 18 146/98 97 Room Air 01/16/17 15:52 98.1 64 21 139/89 96 Room Air Intake and Output 01/16/17 01/17/17 19:00 07:00 Intake Total 965 ml 825 ml Balance 965 ml 825 ml Intake Oral 440 ml IV Total 525 ml 825 ml # Voids 2 1 # Bowel Movements 1 Laboratory Tests Test 01/16/17 16:15 01/17/17 04:55 Stool Occult Blood Negative (NEGATIVE) White Blood Count 8.5 K/UL (4.8-10.8) Red Blood Count 4.03 M/UL (4.70-6.10) L Hemoglobin 12.7 G/DL (14.2-18.0) L Hematocrit 36.4 % (42.0-52.0) L Mean Corpuscular Volume 90 FL (80-99) Mean Corpuscular Hemoglobin 31.6 PG (27.0-31.0) H Mean Corpuscular Hemoglobin Concent 34.9 G/DL (32.0-36.0) Red Cell Distribution Width 11.5 % (11.6-14.8) L Platelet Count 231 K/UL (150-450) Mean Platelet Volume 6.8 FL (6.5-10.1) Neutrophils (%) (Auto) 52.0 % (45.0-75.0) Lymphocytes (%) (Auto) 38.2 % (20.0-45.0) Monocytes (%) (Auto) 8.4 % (1.0-10.0) Eosinophils (%) (Auto) 1.0 % (0.0-3.0) Basophils (%) (Auto) 0.4 % (0.0-2.0) Reticulocyte Count 2.2 % (0.0-2.0) H Prothrombin Time 10.1 SEC (9.30-11.50) Prothromb Time International Ratio 1.0 (0.9-1.1) Activated Partial Thromboplast Time 28 SEC (23-33) Sodium Level 140 mEQ/L (135-145) Potassium Level 3.0 mEQ/L (3.4-4.9) L Chloride Level 101 mEQ/L (98-107) Carbon Dioxide Level 23 mEQ/L (20-30) Anion Gap 16 (5-15) H Blood Urea Nitrogen 7 mg/dL (7-23) Creatinine 0.9 mg/dL (0.7-1.2) Estimat Glomerular Filtration Rate > 60 mL/min (>60) Glucose Level 103 mg/dL (74-106) Hemoglobin A1c 5.8 % (< 6.0) Calcium Level 8.6 mg/dL (8.6-10.2) Iron Level 68 ug/dL (59-158) Total Iron Binding Capacity 279 ug/dL (250-400) Percent Iron Saturation 24 % (15-50) Unsaturated Iron Binding 211 ug/dL (112-346) Ferritin 321 ng/mL (10-230) H Carcinoembryonic Antigen 2.8 ng/mL Vitamin B12 Level 232 pg/mL (211-946) Folate Pending Thyroid Stimulating Hormone (TSH) 6.730 uIU/mL (0.300-4.500) Free Thyroxine 1.02 ng/dL (0.86-1.85) Height (Feet): 5 Height (Inches): 6.00 Weight (Pounds): 200 General Appearance: no apparent distress, alert Cardiovascular: normal rate Respiratory/Chest: normal breath sounds, no respiratory distress Abdominal Exam: normal bowel sounds, non tender, soft Extremities: normal range of motion Adelina German N.P. Jan 17, 2017 14:05
[2017-01-17 16:28] VITALS: BP 137/100
--- NOTE | 2017-01-17 18:33 | Internal Med Progress Note ---
Subjective Date of Service: Jan 17, 2017 Physician Name Mirza Lemos Attending Physician John Hull MD Current Medications Medications (Trade) Dose Ordered Sig/Bert Route PRN Reason Start Time Stop Time Status Last Admin Dose Admin Acetaminophen (Tylenol) 650 mg Q4H PRN ORAL fever 01/15/17 22:15 02/14/17 22:14 Al Hydroxide/Mg Hydroxide (Mylanta II) 30 ml Q6H PRN ORAL dyspepsia 01/15/17 22:15 02/14/17 22:14 Dextrose (Dextrose 50%) STAT PRN IV Hypoglycemia 01/15/17 22:15 02/14/17 22:14 Dextrose/Sodium Chloride (D5 0.45% NS) 1,000 ml @ 75 mls/hr [id number] IV 01/15/17 17:40 02/14/17 17:39 01/16/17 18:45 Diphenhydramine HCl (Benadryl) 25 mg Q6H PRN ORAL Itching/Pruritis 01/15/17 22:15 02/14/17 22:14 Gabapentin (Neurontin) 300 mg THREE TIMES A DAY ORAL 01/16/17 09:00 02/15/17 08:59 01/17/17 17:34 Heparin Sodium (Porcine) (Heparin 5000 units/ml) 5,000 units EVERY 12 HOURS SUBQ 01/16/17 09:00 02/15/17 08:59 01/17/17 09:42 Lamotrigine (LaMICtal) 150 mg BEDTIME ORAL 01/16/17 21:00 02/15/17 20:59 01/16/17 20:47 Lorazepam (Ativan 2mg/ml 1ml) 1 mg Q4H PRN IV agitation 01/15/17 22:15 01/22/17 22:14 Morphine Sulfate (Morphine Sulfate) 2 mg Q4H PRN IVP severe Pain (Pain Scale 7-10) 01/15/17 22:15 01/22/17 22:14 Nitroglycerin (Ntg) 0.4 mg Q5M X 3 DOSES PRN SL Prn Chest Pain 01/15/17 22:15 02/14/17 22:14 Olanzapine (ZyPREXA) 5 mg BEDTIME ORAL 01/16/17 21:00 02/15/17 20:59 01/16/17 20:47 Ondansetron HCl (Zofran) 4 mg Q6H PRN IVP Nausea & Vomiting 01/15/17 22:15 02/14/17 22:14 Polyethylene Glycol (Miralax) 17 gm HSPRN PRN ORAL Constipation 01/15/17 22:15 02/14/17 22:14 Promethazine HCl (Phenergan) 25 mg Q8H PRN IV refractory nausea 01/15/17 22:15 02/14/17 22:14 Quetiapine Fumarate (SEROquel) 800 mg BEDTIME ORAL 01/16/17 21:00 02/15/17 20:59 01/16/17 20:47 Ranitidine HCl (Zantac) 150 mg BEDTIME ORAL 01/16/17 21:00 02/15/17 20:59 01/16/17 20:47 Temazepam (Restoril) 15 mg HSPRN PRN ORAL Insomnia 01/15/17 22:15 01/22/17 22:14 01/16/17 00:50 Trazodone HCl 100 mg 100 mg BEDTIME ORAL 01/16/17 21:00 02/15/17 20:59 01/16/17 20:47 Allergies: Coded Allergies: OMEPRAZOLE (Verified Allergy, Unknown, 01/13/17) ROSUVASTATIN (Verified Allergy, Unknown, 01/13/17) ROS Limited/Unobtainable: No Constitutional: Reports: no symptoms HEENT: Reports: no symptoms Cardiovascular: Reports: no symptoms Respiratory: Reports: no symptoms Gastrointestinal/Abdominal: Reports: no symptoms Genitourinary: Reports: no symptoms Neurologic/Psychiatric: Reports: no symptoms Subjective 46 YO M admitted for intractable nausea and vomiting. Cover for [facility] Jamison Hull. Objective Last Vital Signs Date Time Temp Pulse Resp B/P Pulse Ox O2 Delivery O2 Flow Rate FiO2 01/17/17 16:28 96.8 63 20 137/100 99 Room Air 01/17/17 08:00 3.0 General Appearance: WD/WN, no apparent distress, alert EENT: PERRL/EOMI, normal ENT inspection, TMs normal Neck: non-tender, normal alignment, supple Cardiovascular: normal peripheral pulses, normal rate, regular rhythm, no gallop/murmur, no JVD Respiratory/Chest: chest wall non-tender, lungs clear, normal breath sounds, no respiratory distress, no accessory muscle use Abdomen: normal bowel sounds, non tender, soft, no organomegaly, no mass Extremities: normal range of motion Neurologic: internet salesperson II-XII grossly normal Skin: normal pigmentation, warm/dry Laboratory Tests Test 01/17/17 04:55 White Blood Count 8.5 K/UL (4.8-10.8) Red Blood Count 4.03 M/UL (4.70-6.10) L Hemoglobin 12.7 G/DL (14.2-18.0) L Hematocrit 36.4 % (42.0-52.0) L Mean Corpuscular Volume 90 FL (80-99) Mean Corpuscular Hemoglobin 31.6 PG (27.0-31.0) H Mean Corpuscular Hemoglobin Concent 34.9 G/DL (32.0-36.0) Red Cell Distribution Width 11.5 % (11.6-14.8) L Platelet Count 231 K/UL (150-450) Mean Platelet Volume 6.8 FL (6.5-10.1) Neutrophils (%) (Auto) 52.0 % (45.0-75.0) Lymphocytes (%) (Auto) 38.2 % (20.0-45.0) Monocytes (%) (Auto) 8.4 % (1.0-10.0) Eosinophils (%) (Auto) 1.0 % (0.0-3.0) Basophils (%) (Auto) 0.4 % (0.0-2.0) Reticulocyte Count 2.2 % (0.0-2.0) H Prothrombin Time 10.1 SEC (9.30-11.50) Prothromb Time International Ratio 1.0 (0.9-1.1) Activated Partial Thromboplast Time 28 SEC (23-33) Sodium Level 140 mEQ/L (135-145) Potassium Level 3.0 mEQ/L (3.4-4.9) L Chloride Level 101 mEQ/L (98-107) Carbon Dioxide Level 23 mEQ/L (20-30) Anion Gap 16 (5-15) H Blood Urea Nitrogen 7 mg/dL (7-23) Creatinine 0.9 mg/dL (0.7-1.2) Estimat Glomerular Filtration Rate > 60 mL/min (>60) Glucose Level 103 mg/dL (74-106) Hemoglobin A1c 5.8 % (< 6.0) Calcium Level 8.6 mg/dL (8.6-10.2) Iron Level 68 ug/dL (59-158) Total Iron Binding Capacity 279 ug/dL (250-400) Percent Iron Saturation 24 % (15-50) Unsaturated Iron Binding 211 ug/dL (112-346) Ferritin 321 ng/mL (10-230) H Carcinoembryonic Antigen 2.8 ng/mL Vitamin B12 Level 232 pg/mL (211-946) Folate Pending Thyroid Stimulating Hormone (TSH) 6.730 uIU/mL (0.300-4.500) Free Thyroxine 1.02 ng/dL (0.86-1.85) Intake and Output 01/16/17 01/17/17 19:00 07:00 Intake Total 965 ml 825 ml Balance 965 ml 825 ml Intake Oral 440 ml IV Total 525 ml 825 ml # Voids 2 1 # Bowel Movements 1 Assessment/Plan Problem List: (1) Hypercholesteremia (2) PTSD (post-traumatic stress disorder) Assessment & Plan: Cont lamictal, zyprexa, seroquel and trazodone (3) Peripheral neuropathy (4) Nausea & vomiting Assessment & Plan: Resolving. Cont IV fluid. Advance diet to cardiac. (5) Abdominal pain (6) [place] War syndrome Status: MIRZA Guerin Jan 17, 2017 18:33
--- NOTE | 2017-01-17 19:09 | Pulmonology Progress Note ---
Assessment/Plan Problems: (1) Nausea & vomiting (2) Leukocytosis (3) [place] War syndrome Assessment/Plan advance diet symptomatic treatment GI evaluation dc planning once pt tolerate food Subjective ROS Limited/Unobtainable: No Allergies: Coded Allergies: OMEPRAZOLE (Verified Allergy, Unknown, 01/13/17) ROSUVASTATIN (Verified Allergy, Unknown, 01/13/17) Objective Last 24 Hour Vital Signs Date Time Temp Pulse Resp B/P Pulse Ox O2 Delivery O2 Flow Rate FiO2 01/17/17 16:28 96.8 63 20 137/100 99 Room Air 01/17/17 12:00 97.7 73 18 137/98 95 Room Air 01/17/17 08:00 97.5 75 19 138/90 95 Nasal Cannula 3.0 01/17/17 04:00 97.9 73 18 132/81 99 Room Air 01/16/17 20:00 98.4 73 18 146/98 97 Room Air Intake and Output 01/16/17 01/17/17 19:00 07:00 Intake Total 965 ml 825 ml Balance 965 ml 825 ml Intake Oral 440 ml IV Total 525 ml 825 ml # Voids 2 1 # Bowel Movements 1 General Appearance: WD/WN HEENT: normocephalic Respiratory/Chest: chest wall non-tender, lungs clear Cardiovascular: normal peripheral pulses, normal rate Abdomen: normal bowel sounds, soft, non tender Genitourinary: normal external genitalia Laboratory Tests 01/17/17 04:55: White Blood Count 8.5, Red Blood Count 4.03L, Hemoglobin 12.7L, Hematocrit 36.4L , Mean Corpuscular Volume 90, Mean Corpuscular Hemoglobin 31.6H, Mean Corpuscular Hemoglobin Concent 34.9, Red Cell Distribution Width 11.5L, Platelet Count 231, Mean Platelet Volume 6.8, Neutrophils (%) (Auto) 52.0, Lymphocytes (%) (Auto) 38.2, Monocytes (%) (Auto) 8.4, Eosinophils (%) (Auto) 1.0, Basophils (%) (Auto) 0.4, Reticulocyte Count 2.2H, Prothrombin Time 10.1, Prothromb Time International Ratio 1.0, Activated Partial Thromboplast Time 28, Sodium Level 140, Potassium Level 3.0L, Chloride Level 101, Carbon Dioxide Level 23, Anion Gap 16H, Blood Urea Nitrogen 7, Creatinine 0.9, Estimat Glomerular Filtration Rate > 60, Glucose Level 103, Hemoglobin A1c 5.8, Calcium Level 8.6, Iron Level 68, Total Iron Binding Capacity 279, Percent Iron Saturation 24, Unsaturated Iron Binding 211, Ferritin 321H, Carcinoembryonic Antigen 2.8, Vitamin B12 Level 232, Folate [Pending], Thyroid Stimulating Hormone (TSH) 6.730H, Free Thyroxine 1.02 Current Medications Medications (Trade) Dose Ordered Sig/Bert Route PRN Reason Start Time Stop Time Status Last Admin Dose Admin Acetaminophen (Tylenol) 650 mg Q4H PRN ORAL fever 01/15/17 22:15 02/14/17 22:14 Al Hydroxide/Mg Hydroxide (Mylanta II) 30 ml Q6H PRN ORAL dyspepsia 01/15/17 22:15 02/14/17 22:14 Dextrose (Dextrose 50%) STAT PRN IV Hypoglycemia 01/15/17 22:15 02/14/17 22:14 Dextrose/Sodium Chloride (D5 0.45% NS) 1,000 ml @ 75 mls/hr [id number] IV 01/15/17 17:40 02/14/17 17:39 01/16/17 18:45 Diphenhydramine HCl (Benadryl) 25 mg Q6H PRN ORAL Itching/Pruritis 01/15/17 22:15 02/14/17 22:14 Gabapentin (Neurontin) 300 mg THREE TIMES A DAY ORAL 01/16/17 09:00 02/15/17 08:59 01/17/17 17:34 Heparin Sodium (Porcine) (Heparin 5000 units/ml) 5,000 units EVERY 12 HOURS SUBQ 01/16/17 09:00 02/15/17 08:59 01/17/17 09:42 Lamotrigine (LaMICtal) 150 mg BEDTIME ORAL 01/16/17 21:00 02/15/17 20:59 01/16/17 20:47 Lorazepam (Ativan 2mg/ml 1ml) 1 mg Q4H PRN IV agitation 01/15/17 22:15 01/22/17 22:14 Morphine Sulfate (Morphine Sulfate) 2 mg Q4H PRN IVP severe Pain (Pain Scale 7-10) 01/15/17 22:15 01/22/17 22:14 Nitroglycerin (Ntg) 0.4 mg Q5M X 3 DOSES PRN SL Prn Chest Pain 01/15/17 22:15 02/14/17 22:14 Olanzapine (ZyPREXA) 5 mg BEDTIME ORAL 01/16/17 21:00 02/15/17 20:59 01/16/17 20:47 Ondansetron HCl (Zofran) 4 mg Q6H PRN IVP Nausea & Vomiting 01/15/17 22:15 02/14/17 22:14 Polyethylene Glycol (Miralax) 17 gm HSPRN PRN ORAL Constipation 01/15/17 22:15 02/14/17 22:14 Potassium Chloride (K-Dur) 40 meq TWICE A DAY ORAL 01/17/17 20:00 02/16/17 19:59 Promethazine HCl (Phenergan) 25 mg Q8H PRN IV refractory nausea 01/15/17 22:15 02/14/17 22:14 Quetiapine Fumarate (SEROquel) 800 mg BEDTIME ORAL 01/16/17 21:00 02/15/17 20:59 01/16/17 20:47 Ranitidine HCl (Zantac) 150 mg BEDTIME ORAL 01/16/17 21:00 02/15/17 20:59 01/16/17 20:47 Temazepam (Restoril) 15 mg HSPRN PRN ORAL Insomnia 01/15/17 22:15 01/22/17 22:14 01/16/17 00:50 Trazodone HCl 100 mg 100 mg BEDTIME ORAL 01/16/17 21:00 02/15/17 20:59 01/16/17 20:47 NOMI [place] Jan 17, 2017 19:09
[2017-01-17 20:00] VITALS: BP 137/80
[2017-01-17] MEDS: LaMICtal 150mg tab ORAL SCH (20:30)
[2017-01-17] MEDS: QUEtiapine 200mg tab ORAL SCH (20:30)
[2017-01-17] MEDS: TraZODone 100mg tab ORAL SCH (20:30)
--- NOTE | 2017-01-17 20:30 | Consultation ---
DATE OF CONSULTATION: INFECTIOUS DISEASE CONSULTATION CONSULTING PHYSICIAN: Brandt Gilman M.D. REFERRING PHYSICIAN: Guido Dhillon M.D. REASON FOR CONSULTATION: Evaluation of the patient for leukocytosis. HISTORY OF PRESENT ILLNESS: The patient is a 46-year-old male with multiple medical problems as listed below who was admitted to this medical center with vomiting. The patient has been diagnosed with cyclic vomiting syndrome since 2007. At the time of admission, the patient was found to have leukocytosis. An Infectious Diseases consultation has been requested for further evaluation of the patient and antibiotic management. PAST MEDICAL HISTORY: Significant for: 1. Cyclic vomiting syndrome. 2. History of hyperlipidemia. 3. History of posttraumatic stress disorder. 4. Peripheral neuropathy of the legs. MEDICATIONS: Off antibiotics. ALLERGIES: No allergies to antibiotics. FAMILY HISTORY: Noncontributory. REVIEW OF SYSTEMS: A 10-point review was done and except what is mentioned has been negative PHYSICAL EXAMINATION: VITAL SIGNS: Blood pressure 157/98, temperature 97, respirations 18, pulse 73. HEENT: Mild pale conjunctivae. No icterus. NECK: No lymphadenopathy. CHEST: Clear. HEART: S1 and S2. ABDOMEN: Soft and obese. Nontender. EXTREMITIES: No cyanosis. NEUROLOGIC: Awake. LABORATORY AND DIAGNOSTIC DATA: White blood cell count at the time of admission 15 and today is 8.5, hemoglobin 12.7, platelets 231,000. Stool occult blood negative. BUN 10 and creatinine 0.3. ALT, AST, alkaline phosphatase unremarkable. Ultrasound of the abdomen, no biliary diseases. ASSESSMENT: 1. The patient is a 46-year-old male with multiple medical problems who was admitted here with one cyclic vomiting. 2. , has improved . 3. No evidence of sepsis. The patient denies having cough, runny nose, sore throat, or abdominal pain. PLAN: 1. We will monitor the patient off of antibiotics. 2. Monitor CBC. 3. Monitor BMP. 4. Based on the patient's clinical course and laboratories, we will do further recommendations. Thank you, Dr. Dhillon, for allowing me to participate in the care of this patient. I will follow the patient with you during this hospitalization. Brandt Gilman M.D. DR: Chandni JOB#: [id number] CC:
[2017-01-18 04:00] VITALS: BP 135/95
[2017-01-18 07:10] LABS: ANION GAP 14 (5-15); CALCIUM 8.8 mg/dL (8.6-10.2); CARBON DIOXIDE 25 mEQ/L (20-30); CHLORIDE 101 mEQ/L (98-107); GLOMERULAR FILTRATION RATE > 60 mL/min (>60); HEMOLYSIS 7; POTASSIUM 3.3 mEQ/L (3.4-4.9); SODIUM 140 mEQ/L (135-145)
[2017-01-18 07:19] LABS: BASOPHILS % (AUTO) 0.9 % (0.0-2.0); EOSINOPHILS % (AUTO) 1.6 % (0.0-3.0); LYMPHOCYTES % (AUTO) 29.7 % (20.0-45.0); MEAN CORPUSCULAR HEMOGLOBIN 31.1 PG (27.0-31.0); MEAN CORPUSCULAR HGB CONC 34.2 G/DL (32.0-36.0); MEAN CORPUSCULAR VOLUME 91 FL (80-99); MEAN PLATELET VOLUME 6.3 FL (6.5-10.1); MONOCYTES % (AUTO) 8.7 % (1.0-10.0); NEUTROPHILS % (AUTO) 59.1 % (45.0-75.0); PLATELET COUNT 269 K/UL (150-450); WHITE BLOOD COUNT 8.3 K/UL (4.8-10.8)
[2017-01-18 08:22] VITALS: BP 134/91
[2017-01-18] MEDS: Heparin 5000 units/ml inj SUBQ SCH (08:47)
--- NOTE | 2017-01-18 10:13 | Internal Med Progress Note ---
Subjective Date of Service: Jan 18, 2017 Physician Name Mirza Capps Attending Physician John Hull MD Current Medications Medications (Trade) Dose Ordered Sig/Bert Route PRN Reason Start Time Stop Time Status Last Admin Dose Admin Acetaminophen (Tylenol) 650 mg Q4H PRN ORAL fever 01/15/17 22:15 02/14/17 22:14 Al Hydroxide/Mg Hydroxide (Mylanta II) 30 ml Q6H PRN ORAL dyspepsia 01/15/17 22:15 02/14/17 22:14 Dextrose (Dextrose 50%) STAT PRN IV Hypoglycemia 01/15/17 22:15 02/14/17 22:14 Dextrose/Sodium Chloride (D5 0.45% NS) 1,000 ml @ 75 mls/hr [id number] IV 01/15/17 17:40 02/14/17 17:39 01/17/17 21:28 Diphenhydramine HCl (Benadryl) 25 mg Q6H PRN ORAL Itching/Pruritis 01/15/17 22:15 02/14/17 22:14 Gabapentin (Neurontin) 300 mg THREE TIMES A DAY ORAL 01/16/17 09:00 02/15/17 08:59 01/18/17 08:45 Heparin Sodium (Porcine) (Heparin 5000 units/ml) 5,000 units EVERY 12 HOURS SUBQ 01/16/17 09:00 02/15/17 08:59 01/18/17 08:47 Lamotrigine (LaMICtal) 150 mg BEDTIME ORAL 01/16/17 21:00 02/15/17 20:59 01/17/17 20:30 Lorazepam (Ativan 2mg/ml 1ml) 1 mg Q4H PRN IV agitation 01/15/17 22:15 01/22/17 22:14 Morphine Sulfate (Morphine Sulfate) 2 mg Q4H PRN IVP severe Pain (Pain Scale 7-10) 01/15/17 22:15 01/22/17 22:14 Nitroglycerin (Ntg) 0.4 mg Q5M X 3 DOSES PRN SL Prn Chest Pain 01/15/17 22:15 02/14/17 22:14 Olanzapine (ZyPREXA) 5 mg BEDTIME ORAL 01/16/17 21:00 02/15/17 20:59 01/17/17 20:30 Ondansetron HCl (Zofran) 4 mg Q6H PRN IVP Nausea & Vomiting 01/15/17 22:15 02/14/17 22:14 Polyethylene Glycol (Miralax) 17 gm HSPRN PRN ORAL Constipation 01/15/17 22:15 02/14/17 22:14 Potassium Chloride (K-Dur) 40 meq ONCE ONCE ORAL 01/18/17 10:15 01/18/17 10:16 UNV Potassium Chloride (K-Dur) 40 meq TWICE A DAY ORAL 01/17/17 20:00 02/16/17 19:59 01/18/17 08:45 Promethazine HCl (Phenergan) 25 mg Q8H PRN IV refractory nausea 01/15/17 22:15 02/14/17 22:14 Quetiapine Fumarate (SEROquel) 800 mg BEDTIME ORAL 01/16/17 21:00 02/15/17 20:59 01/17/17 20:30 Ranitidine HCl (Zantac) 150 mg BEDTIME ORAL 01/16/17 21:00 02/15/17 20:59 01/17/17 20:29 Temazepam (Restoril) 15 mg HSPRN PRN ORAL Insomnia 01/15/17 22:15 01/22/17 22:14 01/16/17 00:50 Trazodone HCl 100 mg 100 mg BEDTIME ORAL 01/16/17 21:00 02/15/17 20:59 01/17/17 20:30 Allergies: Coded Allergies: OMEPRAZOLE (Verified Allergy, Unknown, 01/13/17) ROSUVASTATIN (Verified Allergy, Unknown, 01/13/17) ROS Limited/Unobtainable: No Constitutional: Reports: no symptoms HEENT: Reports: no symptoms Cardiovascular: Reports: no symptoms Respiratory: Reports: no symptoms Gastrointestinal/Abdominal: Reports: no symptoms Genitourinary: Reports: no symptoms Neurologic/Psychiatric: Reports: no symptoms Subjective 46 YO M admitted for intractable nausea and vomiting. Tolerating cardiac diet. Cover for Betsy Hull. Objective Last Vital Signs Date Time Temp Pulse Resp B/P Pulse Ox O2 Delivery O2 Flow Rate FiO2 01/18/17 08:22 96.6 79 18 134/91 97 Room Air 01/17/17 08:00 3.0 Laboratory Tests Test 01/18/17 06:30 White Blood Count 8.3 K/UL (4.8-10.8) Red Blood Count 4.40 M/UL (4.70-6.10) L Hemoglobin 13.7 G/DL (14.2-18.0) L Hematocrit 40.1 % (42.0-52.0) L Mean Corpuscular Volume 91 FL (80-99) Mean Corpuscular Hemoglobin 31.1 PG (27.0-31.0) H Mean Corpuscular Hemoglobin Concent 34.2 G/DL (32.0-36.0) Red Cell Distribution Width 12.0 % (11.6-14.8) Platelet Count 269 K/UL (150-450) Mean Platelet Volume 6.3 FL (6.5-10.1) L Neutrophils (%) (Auto) 59.1 % (45.0-75.0) Lymphocytes (%) (Auto) 29.7 % (20.0-45.0) Monocytes (%) (Auto) 8.7 % (1.0-10.0) Eosinophils (%) (Auto) 1.6 % (0.0-3.0) Basophils (%) (Auto) 0.9 % (0.0-2.0) Sodium Level 140 mEQ/L (135-145) Potassium Level 3.3 mEQ/L (3.4-4.9) L Chloride Level 101 mEQ/L (98-107) Carbon Dioxide Level 25 mEQ/L (20-30) Anion Gap 14 (5-15) Blood Urea Nitrogen 6 mg/dL (7-23) L Creatinine 1.0 mg/dL (0.7-1.2) Estimat Glomerular Filtration Rate > 60 mL/min (>60) Glucose Level 127 mg/dL (74-106) H Calcium Level 8.8 mg/dL (8.6-10.2) Microbiology Date/Time Source Procedure Growth Status 01/16/17 17:00 Nasal Nares MRSA Culture - Final NO METHICILLIN RESISTANT STAPH AUREUS... Complete 01/16/17 17:00 Rectum VRE Culture - Final NO VANCOMYCIN RESISTANT ENTEROCOCCUS ... Complete Intake and Output 01/17/17 01/18/17 19:00 07:00 Intake Total 560 ml 3285 ml Balance 560 ml 3285 ml Intake Oral 560 ml 2400 ml IV Total 885 ml # Voids 1 10 Objective General Appearance: WD/WN, no apparent distress, alert EENT: PERRL/EOMI, normal ENT inspection, TMs normal Neck: non-tender, normal alignment, supple Cardiovascular: normal peripheral pulses, normal rate, regular rhythm, no gallop/murmur, no JVD Respiratory/Chest: chest wall non-tender, lungs clear, normal breath sounds, no respiratory distress, no accessory muscle use Abdomen: normal bowel sounds, non tender, soft, no organomegaly, no mass Extremities: normal range of motion Neurologic: proprietary trader II-XII grossly normal Skin: normal pigmentation, warm/dry Assessment/Plan Problem List: (1) Hypercholesteremia (2) PTSD (post-traumatic stress disorder) Assessment & Plan: Cont lamictal, zyprexa, seroquel and trazodone (3) Peripheral neuropathy (4) Nausea & vomiting Assessment & Plan: Resolving. Cont IV fluid. Advance diet to cardiac. (5) Abdominal pain (6) [place] War syndrome (7) Hypokalemia Assessment & Plan: Replace potassium orally Status: tolerating diet Assessment/Plan Discharge home today-F/U Dr Hull in 1 week MIRZA CAPPS Jan 18, 2017 10:13
[2017-01-18 11:38] VITALS: BP 131/93
--- NOTE | 2017-01-18 11:46 | GI Progress Note ---
Assessment/Plan Problems: (1) [place] War syndrome ICD Codes: R69 - Illness, unspecified; Y36.90XS - War operations, unspecified, sequela SNOMED: 42455220 (2) Nausea & vomiting ICD Codes: R11.2 - Nausea with vomiting, unspecified SNOMED: 15830477 (3) Abdominal pain ICD Codes: R10.9 - Unspecified abdominal pain SNOMED: 13672710 (4) Vomiting ICD Codes: R11.10 - Vomiting, unspecified SNOMED: 947620108 (5) Leukocytosis ICD Codes: D72.829 - Elevated white blood cell count, unspecified SNOMED: 304789855, 359141292 Status: stable Status Narrative Discussed with Dr. Muniz. Assessment/Plan lipase WNL utox negative OB stool negative US unremarkable HgA1C WNL ok for dc per GI standpoint adv to cardiac diet symptomatically treat zantac qhs zofran prn, consider reglan if patient has persistent vomiting IV hydration + electrolyte replacement f/u with own GI specialist Subjective Subjective no symptoms tolerating diet ready to go home Objective Last 24 Hour Vital Signs Date Time Temp Pulse Resp B/P Pulse Ox O2 Delivery O2 Flow Rate FiO2 01/18/17 11:38 97.2 62 18 131/93 97 Room Air 01/18/17 08:22 96.6 79 18 134/91 97 Room Air 01/18/17 04:00 96.8 68 18 135/95 96 Room Air 01/17/17 20:00 98.2 79 18 137/80 96 Room Air 01/17/17 16:28 96.8 63 20 137/100 99 Room Air 01/17/17 12:00 97.7 73 18 137/98 95 Room Air Intake and Output 01/17/17 01/18/17 19:00 07:00 Intake Total 560 ml 3285 ml Balance 560 ml 3285 ml Intake Oral 560 ml 2400 ml IV Total 885 ml # Voids 1 10 Laboratory Tests Test 01/18/17 06:30 White Blood Count 8.3 K/UL (4.8-10.8) Red Blood Count 4.40 M/UL (4.70-6.10) L Hemoglobin 13.7 G/DL (14.2-18.0) L Hematocrit 40.1 % (42.0-52.0) L Mean Corpuscular Volume 91 FL (80-99) Mean Corpuscular Hemoglobin 31.1 PG (27.0-31.0) H Mean Corpuscular Hemoglobin Concent 34.2 G/DL (32.0-36.0) Red Cell Distribution Width 12.0 % (11.6-14.8) Platelet Count 269 K/UL (150-450) Mean Platelet Volume 6.3 FL (6.5-10.1) L Neutrophils (%) (Auto) 59.1 % (45.0-75.0) Lymphocytes (%) (Auto) 29.7 % (20.0-45.0) Monocytes (%) (Auto) 8.7 % (1.0-10.0) Eosinophils (%) (Auto) 1.6 % (0.0-3.0) Basophils (%) (Auto) 0.9 % (0.0-2.0) Sodium Level 140 mEQ/L (135-145) Potassium Level 3.3 mEQ/L (3.4-4.9) L Chloride Level 101 mEQ/L (98-107) Carbon Dioxide Level 25 mEQ/L (20-30) Anion Gap 14 (5-15) Blood Urea Nitrogen 6 mg/dL (7-23) L Creatinine 1.0 mg/dL (0.7-1.2) Estimat Glomerular Filtration Rate > 60 mL/min (>60) Glucose Level 127 mg/dL (74-106) H Calcium Level 8.8 mg/dL (8.6-10.2) Height (Feet): 5 Height (Inches): 6.00 Weight (Pounds): 200 General Appearance: no apparent distress, alert Cardiovascular: normal rate Respiratory/Chest: normal breath sounds, no respiratory distress Abdominal Exam: normal bowel sounds, non tender, soft Extremities: normal range of motion Adelina German N.P. Jan 18, 2017 11:46
--- NOTE | 2017-01-18 21:00 | Consultation ---
DATE OF CONSULTATION: 01/16/2017 HISTORY OF PRESENT ILLNESS: This is a 46-year-old male with a history of multiple medical problems, who has been admitted to the hospital with a chief complaint of cyclic vomiting syndrome. The patient has a history of PTSD, anxiety and agitation. During the evaluation, the patient is complaining of anxiety and agitation has been recently had a change of medication including Zyprexa. He has been receiving Seroquel and Lamictal as well as trazodone. He is under care of a psychiatrist and the psychiatrist apparently discussed taking medications. He denied any suicidal or homicidal ideations. No manic or psychotic symptoms. PAST PSYCHIATRIC HISTORY: Diagnosed with PTSD, has a history of severe depression and anxiety. He has group therapy as well as individual therapy. He has been hospitalized. No suicide attempts. PAST MEDICAL HISTORY: Significant for hypercholesterolemia, peripheral neuropathy and cyclic vomiting syndrome. ALLERGIES: Pepcid. MENTAL STATUS EXAMINATION: The patient is alert and oriented x4. Mood is depressed and anxious. Affect is constricted. Congruent mood. Thought process is linear. Thought content, no suicidal or homicidal ideations. ASSESSMENT: AXIS I PTSD and major depressive disorder. AXIS II Deferred. AXIS III Vomiting. AXIS IV Low. AXIS V Global assessment of functioning is 50. PLAN: 1. We will discontinue the Zyprexa. 2. Continue Seroquel as well as Lamictal. 3. Provide the patient with reality orientation and supportive therapy. Vangie Patino M.D. DR: JAMES JOB#: [id number] CC:
--- NOTE | 2017-01-18 21:00 | Progress Note ---
DATE: 01/18/2017 SUBJECTIVE: The patient is done well. No behavior issues. Calm and cooperative. Mood is neutral. Affect is constricted, congruent with mood. Thought process is linear. Thought content, no suicidal or homicidal ideation. Discussed the medication. The patient was not given Zyprexa. He would like to continue with Zyprexa and encouraged him that there is a contraindication to use two antipsychotics. The patient was discussed with outpatient psychiatrist. The patient is not endorsing any suicidal homicidal ideation. MENTAL STATUS EXAMINATION: Alert and oriented x4. Mood is neutral. Affect is constricted, congruent with mood. Thought process is concrete. Thought content, no suicidal or homicidal ideation. ASSESSMENT: 1. Posttraumatic stress disorder. 2. Depression. PLAN: 1. The patient will be continued on Seroquel and trazodone. 2. We will continue follow and readjust the medications. Vangie Patino M.D. DR: JD JOB#: [id number] CC:
--- NOTE | 2017-01-18 21:00 | Progress Note ---
Date:01/17/17 SUBJECTIVE: The patient appears to be doing well. No behavior issues. appetite is adequate. Compliant with medication. MENTAL STATUS EXAM: Alert and oriented x4. Cooperative mood is neutral. Affect is constricted. Congruent mood. Thought process is concrete. Thought content, no suicidal or homicidal ideation. No delusions. No IVH. ASSESSMENT: Posttraumatic stress disorder, stable. PLAN: 1. The patient will be continued on Seroquel, Lamictal, and trazodone. 2. Provide the patient with supportive therapy and reality orientation. Vangie Patino M.D. DR: Ana JOB#: [id number] CC: MABLE
--- NOTE | 2017-01-18 22:12 | Pulmonology Progress Note ---
Assessment/Plan Problems: (1) Nausea & vomiting (2) Leukocytosis (3) [place] War syndrome Assessment/Plan advance diet symptomatic treatment GI evaluation dc planning once pt tolerate food Subjective Allergies: Coded Allergies: OMEPRAZOLE (Verified Allergy, Unknown, 01/13/17) ROSUVASTATIN (Verified Allergy, Unknown, 01/13/17) Objective Last 24 Hour Vital Signs Date Time Temp Pulse Resp B/P Pulse Ox O2 Delivery O2 Flow Rate FiO2 01/18/17 11:38 97.2 62 18 131/93 97 Room Air 01/18/17 08:22 96.6 79 18 134/91 97 Room Air 01/18/17 04:00 96.8 68 18 135/95 96 Room Air Intake and Output 01/17/17 01/18/17 19:00 07:00 Intake Total 560 ml 3285 ml Balance 560 ml 3285 ml Intake Oral 560 ml 2400 ml IV Total 885 ml # Voids 1 10 Microbiology Date/Time Source Procedure Growth Status 01/16/17 17:00 Nasal Nares MRSA Culture - Final NO METHICILLIN RESISTANT STAPH AUREUS... Complete 01/16/17 17:00 Rectum VRE Culture - Final NO VANCOMYCIN RESISTANT ENTEROCOCCUS ... Complete Laboratory Tests 01/18/17 06:30: White Blood Count 8.3, Red Blood Count 4.40L, Hemoglobin 13.7L, Hematocrit 40.1L , Mean Corpuscular Volume 91, Mean Corpuscular Hemoglobin 31.1H, Mean Corpuscular Hemoglobin Concent 34.2, Red Cell Distribution Width 12.0, Platelet Count 269, Mean Platelet Volume 6.3L, Neutrophils (%) (Auto) 59.1, Lymphocytes ( %) (Auto) 29.7, Monocytes (%) (Auto) 8.7, Eosinophils (%) (Auto) 1.6, Basophils (%) (Auto) 0.9, Sodium Level 140, Potassium Level 3.3L, Chloride Level 101, Carbon Dioxide Level 25, Anion Gap 14, Blood Urea Nitrogen 6L, Creatinine 1.0, Estimat Glomerular Filtration Rate > 60, Glucose Level 127H, Calcium Level 8.8 NOMI [place] Jan 18, 2017 22:12
--- NOTE | 2017-01-19 10:09 | Discharge Summary ---
Discharge Summary Hospital Course Date of Admission Jan 15, 2017 at 21:32 Date of Discharge Jan 18, 2017 at 12:30 Admitting Diagnosis Persistant nausea, vomiting HPI Mango Leonel, III is a 46 year old male who was admitted on Jan 15, 2017 at 21: 32 for Persistant Nausea,Vomiting Hospital Course [id number] Discharge Discharge Disposition Patient was discharged to Home (01) Discharge Diagnoses: Krista Monae NP Jan 19, 2017 10:09
--- NOTE | 2017-01-20 09:30 | Discharge Summary 2 SIG ---
DATE OF ADMISSION: 01/15/2017 DATE OF DISCHARGE: 01/18/2017 CONSULTANTS: 1. Guido Dhillon M.D. 2. Vangie Patino M.D. 3. Luis Daniel Muniz M.D. HOSPITAL COURSE: The patient is a 46-year-old, white male, with history of [place] War syndrome, cyclic vomiting syndrome presented with complaints of nausea and vomiting that began in January 13, 2017. He had intractable nausea and vomiting and was unable to tolerate solids or liquids. He was admitted to [facility] and signed out against medical advice on January 14, 2017 because he was feeling better. Again, he presented with same symptoms and came back to ED. He was then admitted and was placed on IV hydration and electrolyte replacement. The patient has allergies to proton pump inhibitors and was given Zantac and p.r.n. Zofran. He was initially started on clear liquid diet. Lipase was within normal limits. Urine toxicology was negative. Abdominal ultrasound was negative for gallstones or dilated ducts. He underwent psychiatric evaluation and was diagnosed to have posttraumatic stress disorder with major depressive disorder. Zyprexa was discontinued and was given Seroquel and Lamictal. Electrolytes were repeated. Diet was eventually advanced and was tolerating diet. The patient was eventually discharged home to follow up with Dr. Hull in one week. FINAL DIAGNOSES: 1. Cyclic vomiting syndrome. 2. Posttraumatic stress disorder. 3. Hypercholesterolemia. 4. Peripheral neuropathy. 5. Hypokalemia. 6. [place] War syndrome. Tim Lemos M.D. I have been assigned to dictate discharge summary on this account and I was not involved in the patient's management. Krista Monae N.P. DR: HILDA JOB#: [id number] CC: MABLE
== END 2017-01-18 12:30 | disposition home or self-care (01) | DRG 103 ==
LOC: EMR 19:57 → 3E 21:32 → EDBEDREQ 22:15
DX: G43.A0 Cyclical vomiting, in migraine, not intractable (principal); G62.9 Polyneuropathy, unspecified; I10 Essential (primary) hypertension; E78.00 Pure hypercholesterolemia, unspecified; F43.10 Post-traumatic stress disorder, unspecified; Z88.8 Allergy status to other drugs, medicaments and biological substances; F17.200 Nicotine dependence, unspecified, uncomplicated; F32.9 Major depressive disorder, single episode, unspecified; R69 Illness, unspecified; Y36.90XS War operations, unspecified, sequela
CPT/HCPCS: 36415; 76700; 80048; 80053; 80300; 80329; 82150; 82270; 82378; 82607; 82728; 82746; 83036; 83540; 83550; 83690; 84439; 84443; 85025; 85044; 85610; 85730; 87081; J2405; J2765; J8499